=== PATIENT | male | born 1990 ===

== ENCOUNTER 2019-04-05 12:38 | Emergency (ER) | payer SELFPAY ==
--- NOTE | 2019-04-05 12:57 | Event Note ---
{null, ED Screening Note ED Screening Note: left upper arm pain that began suddenly today states he broke out in a sweat and began to feel overheated chest tightness +SOB no n/v PMHx had when he was a child HLD, HTN resolved after diet +smoker +occ drinker no drug use 2-3 cups of coffee a day This initial assessment/diagnostic orders/clinical plan/treatment(s) is/are subject to change based on patients health status, clinical progression and re- assessment by fellow clinical providers in the ED. Further treatment and workup at subsequent clinical providers discretion. Patient/guardian urged not to elope from the ED as their condition may be serious if not clinically assessed and managed. Initial orders include: CP protocol needs MAIN evaluation }
[2019-04-05 13:41] LABS: Hematocrit 51.2 % (35.5-45.6); INR 1.03 (0.87-1.13); Mean Corpuscular HGB Conc 35 % (32-34); Mean Corpuscular Volume 93 fl (84-94); Partial Thromboplastin Time 25.2 Sec. (24.2-36.6); Platelet Count 218 K/mm3 (140-440); Red Cell Distribution Width 12.8 % (13.2-15.2)
[2019-04-05 13:52] LABS: Alanine Aminotransferase 41 units/L (7-56); Albumin 5.2 g/dL (3.9-5); BUN/Creatinine Ratio 14; Blood Urea Nitrogen 15 mg/dL (9-20); Calcium 10.3 mg/dL (8.4-10.2); Hemolysis Index 44
--- NOTE | 2019-04-05 14:04 | Emergency Department Report ---
{null, ED Chest Pain HPI - General Chief Complaint: Chest Pain Stated Complaint: CP Time Seen by Provider: 04/05/19 12:54 Source: patient Mode of arrival: Ambulatory Limitations: No Limitations - History of Present Illness Initial Comments: 29-year-old male with hypertension at age 10-11 that did not require medication and resolved with diet changes presents to the hospital with complaints sudden onset of hot feeling, shooting left arm pain, chest tightness, shortness of breath, and diaphoresis at 12 PM. Patient presents to the ER with significant diaphoresis and reports 6/10 pain. No complaints of nausea or vomiting, calf tenderness, or leg edema. Patient states he checked his blood pressure prior to arrival and it was significantly elevated. He does drink coffee, smokes cigarettes, and denies drug use specifically cocaine. No recent travel re ported. Patient does admit to smoking marijuana with use earlier this week. Patient also denies history of anxiety but states he is under a lot of stress. - Related Data Allergies Allergy/AdvReac Type Severity Reaction Status Date / Time No Known Allergies Allergy Unverified 04/05/19 12:44 Heart Score - HEART Score History: Moderately suspicious EKG: Normal Age: < 45 Risk factors: 1-2 risk factors Troponin: < normal limit HEART Score: 2 ED Review of Systems ROS: Stated complaint: CP Other details as noted in HPI Comment: All other systems reviewed and negative ED Past Medical Hx - Past Medical History Previous Medical History?: No - Surgical History Past Surgical History?: No - Social History Smoking Status: Current Every Day Smoker Substance Use Type: Alcohol ED Physical Exam - General Limitations: No Limitations - Other Other exam information: General: No acute distress Head: Atraumatic Eyes: normal appearance ENT: Moist mucous membranes Neck: Normal appearance, no midline tenderness, no thyromegaly or thyroid tenderness Chest: Clear to auscultation bilaterally, chest wall nontender CV: Regular rate and rhythm Abdomen: Soft, normal bowel sounds, nontender, nondistended, no rebound or guarding Back: Normal inspection Extremity: Normal inspection, full range of motion, no calf tenderness or leg edema Neuro: Alert O x 3, no facial asymmetry, speech clear, no gross motor sensory deficit Psych: Appropriate behavior Skin: Significant diaphoresis ED Course Vital Signs 04/05/19 04/05/19 04/05/19 12:42 12:57 13:13 Temperature 98.4 F Pulse Rate 104 H 90 Respiratory 25 H 91 H 17 Rate Blood Pressure 178/117 Blood Pressure 174/111 [Left] Blood Pressure 171/107 [Right] O2 Sat by Pulse 100 98 Oximetry 04/05/19 04/05/19 04/05/19 13:16 13:17 13:30 Temperature Pulse Rate 90 85 Respiratory 21 18 18 Rate Blood Pressure 149/112 149/112 Blood Pressure [Left] Blood Pressure [Right] O2 Sat by Pulse 99 98 98 Oximetry 04/05/19 04/05/19 04/05/19 13:46 14:00 14:28 Temperature Pulse Rate 74 74 84 Respiratory 20 12 12 Rate Blood Pressure 149/112 139/87 139/87 Blood Pressure [Left] Blood Pressure [Right] O2 Sat by Pulse 97 98 98 Oximetry 04/05/19 04/05/19 04/05/19 14:30 14:46 15:00 Temperature Pulse Rate 76 75 79 Respiratory 10 L 21 21 Rate Blood Pressure 139/87 139/87 143/80 Blood Pressure [Left] Blood Pressure [Right] O2 Sat by Pulse 97 98 98 Oximetry 04/05/19 04/05/19 04/05/19 15:16 15:31 15:45 Temperature Pulse Rate 76 82 88 Respiratory 11 L 16 22 Rate Blood Pressure 143/80 143/80 Blood Pressure [Left] Blood Pressure [Right] O2 Sat by Pulse 98 97 97 Oximetry 04/05/19 16:01 Temperature Pulse Rate 73 Respiratory 12 Rate Blood Pressure 150/91 Blood Pressure [Left] Blood Pressure [Right] O2 Sat by Pulse 97 Oximetry - Reevaluation(s) Reevaluation #1: 04/05/19 17:18 During ED stay patient was observed there were has not administered any medication. Patient symptoms spontaneously resolved. Diaphoresis improved, blood pressure improved to normal range,, chest tightness improved, and patient tolerated ambulation in the ED without difficulty. MELYSSA score - Melyssa Score Age > 65: (0) No Aspirin use within the Past 7 Days: (0) No 3 or more CAD Risk Factors: (0) No 2 or more Angina events in past 24 hrs: (0) No Known CAD with more than 50% Stenosis: (0) No Elevated Cardiac Markers: (0) No ST Deviation Greater than 0.5mm: (0) No MELYSSA Score: 0 ED Medical Decision Making - Lab Data Result diagrams: 04/05/19 13:08 04/05/19 13:08 Lab Results 04/05/19 04/05/19 04/05/19 Range/Units 13:08 13:08 13:08 WBC 8.1 (4.5-11.0) K/mm3 RBC 5.50 H (3.65-5.03) M/mm3 Hgb 18.0 H (11.8-15.2) gm/dl Hct 51.2 H (35.5-45.6) % MCV 93 (84-94) fl MCH 33 H (28-32) pg MCHC 35 H (32-34) % RDW 12.8 L (13.2-15.2) % Plt Count 218 (140-440) K/mm3 Lymph % (Auto) Money Order Clerk [place] % (Auto) Money Order Clerk Eos % (Auto) Money Order Clerk Baso % (Auto) Money Order Clerk Lymph # Money Order Clerk [place] # Money Order Clerk Eos # Money Order Clerk Baso # Money Order Clerk Seg Neutrophils % Money Order Clerk Seg Neutrophils # Money Order Clerk PT 13.6 (12.2-14.9) Sec. INR 1.03 (0.87-1.13) APTT 25.2 (24.2-36.6) Sec. Sodium 140 (137-145) mmol/L Potassium 4.1 (3.6-5.0) mmol/L Chloride 98.9 (98-107) mmol/L Carbon Dioxide 24 (22-30) mmol/L Anion Gap 21 mmol/L BUN 15 (9-20) mg/dL Creatinine 1.1 (0.8-1.5) mg/dL Estimated GFR > 60 ml/min BUN/Creatinine Ratio 14 % Glucose 68 L (75-100) mg/dL POC Glucose (70-105) Calcium 10.3 H (8.4-10.2) mg/dL Phosphorus (2.5-4.5) mg/dL Magnesium (1.7-2.3) mg/dL Total Bilirubin 1.00 (0.1-1.2) mg/dL AST 29 (5-40) units/L ALT 41 (7-56) units/L Alkaline Phosphatase 86 (35-129) units/L Total Creatine Kinase (55-170) units/L Troponin T < 0.010 (0.00-0.029) ng/mL Total Protein 8.1 (6.3-8.2) g/dL Albumin 5.2 H (3.9-5) g/dL Albumin/Globulin Ratio 1.8 % Urine Opiates Screen Urine Methadone Screen Ur Barbiturates Screen Ur Phencyclidine Scrn Ur Amphetamines Screen U Benzodiazepines Scrn Urine Cocaine Screen U Marijuana (THC) Screen Drugs of Abuse Note 04/05/19 04/05/19 04/05/19 Range/Units 13:08 13:37 15:57 WBC (4.5-11.0) K/mm3 RBC (3.65-5.03) M/mm3 Hgb (11.8-15.2) gm/dl Hct (35.5-45.6) % MCV (84-94) fl MCH (28-32) pg MCHC (32-34) % RDW (13.2-15.2) % Plt Count (140-440) K/mm3 Lymph % (Auto) [place] % (Auto) Eos % (Auto) Baso % (Auto) Lymph # [place] # Eos # Baso # Seg Neutrophils % Seg Neutrophils # PT (12.2-14.9) Sec. INR (0.87-1.13) APTT (24.2-36.6) Sec. Sodium (137-145) mmol/L Potassium (3.6-5.0) mmol/L Chloride (98-107) mmol/L Carbon Dioxide (22-30) mmol/L Anion Gap mmol/L BUN (9-20) mg/dL Creatinine (0.8-1.5) mg/dL Estimated GFR ml/min BUN/Creatinine Ratio % Glucose (75-100) mg/dL POC Glucose 82 (70-105) Calcium (8.4-10.2) mg/dL Phosphorus 2.40 L (2.5-4.5) mg/dL Magnesium 2.10 (1.7-2.3) mg/dL Total Bilirubin (0.1-1.2) mg/dL AST (5-40) units/L ALT (7-56) units/L Alkaline Phosphatase (35-129) units/L Total Creatine Kinase 418 H (55-170) units/L Troponin T < 0.010 (0.00-0.029) ng/mL Total Protein (6.3-8.2) g/dL Albumin (3.9-5) g/dL Albumin/Globulin Ratio % Urine Opiates Screen Urine Methadone Screen Ur Barbiturates Screen Ur Phencyclidine Scrn Ur Amphetamines Screen U Benzodiazepines Scrn Urine Cocaine Screen U Marijuana (THC) Screen Drugs of Abuse Note 04/05/19 Range/Units Unknown WBC (4.5-11.0) K/mm3 RBC (3.65-5.03) M/mm3 Hgb (11.8-15.2) gm/dl Hct (35.5-45.6) % MCV (84-94) fl MCH (28-32) pg MCHC (32-34) % RDW (13.2-15.2) % Plt Count (140-440) K/mm3 Lymph % (Auto) [place] % (Auto) Eos % (Auto) Baso % (Auto) Lymph # [place] # Eos # Baso # Seg Neutrophils % Seg Neutrophils # PT (12.2-14.9) Sec. INR (0.87-1.13) APTT (24.2-36.6) Sec. Sodium (137-145) mmol/L Potassium (3.6-5.0) mmol/L Chloride (98-107) mmol/L Carbon Dioxide (22-30) mmol/L Anion Gap mmol/L BUN (9-20) mg/dL Creatinine (0.8-1.5) mg/dL Estimated GFR ml/min BUN/Creatinine Ratio % Glucose (75-100) mg/dL POC Glucose (70-105) Calcium (8.4-10.2) mg/dL Phosphorus (2.5-4.5) mg/dL Magnesium (1.7-2.3) mg/dL Total Bilirubin (0.1-1.2) mg/dL AST (5-40) units/L ALT (7-56) units/L Alkaline Phosphatase (35-129) units/L Total Creatine Kinase (55-170) units/L Troponin T (0.00-0.029) ng/mL Total Protein (6.3-8.2) g/dL Albumin (3.9-5) g/dL Albumin/Globulin Ratio % Urine Opiates Screen Presumptive negative Urine Methadone Screen Presumptive negative Ur Barbiturates Screen Presumptive negative Ur Phencyclidine Scrn Presumptive negative Ur Amphetamines Screen Presumptive negative U Benzodiazepines Scrn Presumptive negative Urine Cocaine Screen Presumptive negative U Marijuana (THC) Screen Presumptive positive Drugs of Abuse Note Disclamer - EKG Data -: EKG Interpreted by Me EKG shows normal: sinus rhythm, ST-T waves (no stemi) Rate: normal - EKG Data 04/05/19 16:41 repeat ekg sinus rate 66 without ischemia or stemi - Radiology Data Radiology results: report reviewed (cxr: naf) - Medical Decision Making Patient had transient hypertension, diaphoresis, and chest tightness with unremarkable ED work-up which included normal EKG x2, troponin negative x2, negative CT angiogram chest abdomen and pelvis for acute abnormalities. Patient is currently at his baseline. UDS positive for marijuana only. No life- threatening cause of symptoms identified at this time. Patient encouraged to follow-up with primary care doctor and cardiology as outpatient for further evaluation to return to the ER if symptoms worsen again. - Differential Diagnosis Pheochromocytoma, aortic dissection, anxiety, drug abuse, NM, PE Critical Care Time: No Critical care attestation.: If time is entered above; I have spent that time in minutes in the direct care of this critically ill patient, excluding procedure time. ED Disposition Clinical Impression: Transient hypertension, Diaphoresis, Chest pain Disposition: DC-01 TO HOME OR SELFCARE Is pt being admited?: No Does the pt Need Aspirin: No Condition: Stable Instructions: Chest Pain (ED), How to Take a Blood Pressure (ED) Additional Instructions: The cause of your symptoms is unclear at this time. Your ER work-up was unremarkable. 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 In the meantime continue to monitor your blood pressure and symptoms and return if symptoms worsen as indicated by your discharge instructions. You have been provided a copy of your results to take to your doctor for follow up. Avoid caffeine use at this time. Referrals: OTTO WALTER MD [Primary Care Provider] - 3-5 Days [facility] [Provider Group] - 2-3 Days TRACE LOZANO MD [Staff Physician] - 3-5 Days }
[2019-04-05 14:31] LABS: Amphetamine Screen,Urine PRESUMPTIVE NEGATIVE; Benzodiazepines Screen,Urine PRESUMPTIVE NEGATIVE; Cocaine Screen,Urine PRESUMPTIVE NEGATIVE; Methadone Screen,Urine PRESUMPTIVE NEGATIVE; Opiate Screen,Urine PRESUMPTIVE NEGATIVE
[2019-04-05 14:43] LABS: Cannabinoid Screen,Urine PRESUMPTIVE POSITIVE
--- NOTE | 2019-04-05 17:00 | Cat Scan Report ---
{null, CT angio chest, CT angio abdomen pelvis INDICATION / CLINICAL INFORMATION: Chest pain, htn, left arm numbness, diaphoresis. Back pain. TECHNIQUE: Axial CT images were obtained after injection of Omnipaque 350, 100 cc IV contrast using CTA protocol . 3 plane MIP / 3D reconstructions were produced. All CT scans at this location are performed using C T dose reduction for ALARA by means of automated exposure control. COMPARISON: None available. CTA chest: The lungs contain no mass, infiltrate or pleural fluid. Negative for mediastinal mass or a denopathy. No aneurysm, dissection or pulmonary embolus. CTA ABDOMEN: The aorta is normal in caliber. The mesenteric vessels and renal arteries are widely pat ent. An accessory renal artery is seen on the right. CTA PELVIS: The iliac vessels are widely patent. Negative for abdominal mass, fluid or inflammation. The appendix is normal. IMPRESSION: 1. Negative for aneurysm, dissection or pulmonary embolus. 2. Negative for active inflammatory process. Signer Name: Luis Angel Stack MD Signed: 04/05/2019 4:55 PM Workstation Name: [id number] }
[2019-04-05 17:30] VITALS: BP 136/82
== END 2019-04-05 17:45 | disposition home or self-care (01) ==
LOC: ED 12:38
DX: R61 Generalized hyperhidrosis (principal); R07.89 Other chest pain; R03.0 Elevated blood-pressure reading, without diagnosis of hypertension; F17.200 Nicotine dependence, unspecified, uncomplicated
CPT/HCPCS: 36415; 71045; 71275; 74174; 80053; 80307; 82550; 82962; 83735; 84100; 84484; 85025; 85610; 85730; 93005; 93010; 99285; Q9967